=== PATIENT | male | born 1995 | race African-American/Black ===

== ENCOUNTER 2019-10-28 13:54 | Emergency (ER) | payer MEDICAID ==
[~2019-10-28] VITALS: Ht 188 cm; Wt 69.0 kg
[2019-10-28 18:00] VITALS: BP 115/71
== END 2019-10-28 18:00 | disposition home or self-care (01) ==
LOC: ER 14:03
DX: S01.111A Laceration without foreign body of right eyelid and periocular area, initial encounter (principal); W22.8XXA Striking against or struck by other objects, initial encounter; Y93.67 Activity, basketball; Y92.89 Other specified places as the place of occurrence of the external cause; Y99.8 Other external cause status
CPT/HCPCS: 99281